=== PATIENT | male | born 1970 | race Caucasian/White ===

== ENCOUNTER 2018-12-04 09:03 | Emergency (ER) | payer OTHER ==
[~2018-12-04] VITALS: Ht 175.3 cm; Wt 86.2 kg
[~2018-12-04 09:03] MED LIST: ADDERALL 15 MG15 MG; FLEXERIL PO; HYDROCODON-ACE1 EAC7 PO; LEXAPRO 10 MG T10 M2 PO; NAPROSYN500 MG PO; NEURONTIN600 MG PO; NORCO 5-325 TA1 EAC1 PO
[2018-12-04] MEDS ORDERED: CYMBALTA20 MG PO (09:19)
[2018-12-04] MEDS ORDERED: GABAPENTIN 100100 MG PO (09:19)
[2018-12-04 09:32] LABS: ABSOLUTE BASOPHILS 0.1 thou/uL (0.0-0.2); ABSOLUTE EOSINOPHILS 0.1 thou/uL (0.0-0.7); ABSOLUTE LYMPHOCYTES 1.6 thou/uL (0.8-5.3); ABSOLUTE MONOCYTES 0.8 thou/uL (0.0-1.2); ABSOLUTE NEUTROPHILS 5.9 thou/uL (1.6-8.1); BASOPHILS 0.9 %; HEMATOCRIT 48.3 % (42.0-52.0); HEMOGLOBIN 16.4 gm/dL (14.0-18.0); LYMPHOCYTES 18.8 %; MCH 30.2 pg (26.0-34.0); MCHC 33.9 g/dL (28.0-37.0); MCV 89.1 fL (80.0-100.0); MONOCYTES 9.2 %; MPV 8.3 fl. (7.2-11.1); NUCLEATED RBCS 0 /100WBC; PLATELET COUNT* 197 thou/uL (150-400); POLYS 70.1 %; RBC 5.42 mil/uL (4.50-6.00); RDW-CV 13.4 % (10.5-14.5); WBC 8.4 thou/uL (4.0-11.0)
[2018-12-04 09:40] LABS: URINE BLOOD NEGATIVE (Negative); URINE CLARITY CLEAR; URINE COLOR YELLOW; URINE GLUCOSE-RANDOM NEGATIVE (Negative); URINE KETONES 1+ (Negative); URINE LEUKOCYTES-REFLEX NEGATIVE (Negative); URINE NITRITE-REFLEX NEGATIVE (Negative); URINE PROTEIN TRACE (Negative); URINE SPECIFIC GRAVITY >= 1.030 (1.005-1.030); URINE UROBILINOGEN 0.2 E.U./dl (0.2-1.0)
[2018-12-04 09:45] LABS: ICTOTEST (BILI CONFIRMATORY) Negative (Negative); URINE BILIRUBIN 1+ (Negative)
[2018-12-04 09:47] LABS: CREATININE 1.1 mg/dL (0.6-1.3); POTASSIUM 3.9 mmol/L (3.5-5.1)
[2018-12-04 09:52] LABS: ALBUMIN 4.4 g/dL (3.4-5.0); SALICYLATE < 2.8 mg/dL (2.8-20.0); TOTAL BILIRUBIN 0.5 mg/dL (<0.1-1.0); TOTAL PROTEIN 7.8 g/dL (6.4-8.2)
[2018-12-04 09:53] LABS: ACETAMINOPHEN < 2 ug/mL (10-30); ALCOHOL < 10 mg/dL (<10)
[2018-12-04 10:02] LABS: AMP/METHAMP Negative (Negative); BARBITURATES Negative (Negative); BENZODIAZEPINES Negative (Negative); COCAINE Negative (Negative); METHADONE Negative (Negative); OPIATES Negative (Negative); PCP Negative (Negative); THC POSITIVE (Negative)
[2018-12-04 17:00] VITALS: BP 106/75
== END 2018-12-04 17:00 ==
LOC: M.ERS 09:03
PROVIDERS: Family Medicine
DX: R45.851 Suicidal ideations (principal); M19.90 Unspecified osteoarthritis, unspecified site; F32.9 Major depressive disorder, single episode, unspecified; Z88.1 Allergy status to other antibiotic agents

== ENCOUNTER 2019-09-28 11:38 | Emergency (ER) | payer OTHER ==
[~2019-09-28] VITALS: Ht 175.3 cm; Wt 74.8 kg
[~2019-09-28 11:38] MED LIST changes: +CYMBALTA20 MG PO; +GABAPENTIN 100100 MG PO
[2019-09-28 12:06] LABS: HEMATOCRIT 46.3 % (42.0-52.0); HEMOGLOBIN 15.9 gm/dL (14.0-18.0); MCH 31.1 pg (26.0-34.0); MCHC 34.2 g/dL (28.0-37.0); MCV 90.9 fL (80.0-100.0); MPV 8.3 fl. (7.2-11.1); RBC 5.1 mil/uL (4.50-6.00); RDW-CV 13.1 % (10.5-14.5); WBC 10.8 thou/uL (4.0-11.0)
[2019-09-28 12:35] LABS: CALCIUM 9.1 mg/dL (8.5-10.1); CREATININE 1.1 mg/dL (0.6-1.3); POTASSIUM 3.8 mmol/L (3.5-5.1)
[2019-09-28 12:37] LABS: ACETAMINOPHEN < 2 ug/mL (10-30); ALCOHOL < 10 mg/dL (<10); SALICYLATE < 2.8 mg/dL (2.8-20.0)
[2019-09-28 12:39] LABS: ALBUMIN 4.4 g/dL (3.4-5.0); TOTAL BILIRUBIN 0.6 mg/dL (<0.1-1.0); TOTAL PROTEIN 7.5 g/dL (6.4-8.2)
[2019-09-28] MEDS ORDERED: ONDANSETRON ODT4 MG PO (12:51)
[2019-09-28] MEDS ORDERED: PROMS25 WY RECTAL (12:51)
[2019-09-28 13:24] VITALS: BP 144/84
--- NOTE | 2019-09-28 15:54 | EKG ---
[place] [address] ELECTROCARDIOGRAM REPORT Name: VINNIE ANDRADE Room: [facility]#: [id number] Admission: 09/28/19 Attend Phys: Discharge: 09/28/19 Date of : 74 Date of Service: 09/28/19 1145 Report #: [id number] THIS REPORT FOR: //name// [facility] ED Test Date: 2019-09-28 Test Time: 11:45:40 Pat Name: VINNIE ANDRADE Department: Room: Gender: Care Transition Coordinator: [facility] : 1970 Requested By: Elgin Vigil Order Number: [id number] MD: Lobo Uribe Measurements Intervals [place] Rate: 55 P: 264 HI: 122 QRS: 77 QRSD: 66 T: 68 QT: 456 QTc: 437 Interpretive Statements Ectopic atrial bradycardia Abnormal T, consider ischemia, anterior leads No previous ECG available for comparison Electronically Signed On 09-28-2019 15:52:40 CDT by Lobo Uribe [email or web address] <ELECTRONICALLY SIGNED> By: Lobo Uribe MD, [facility] 09/28/19 1552 1145 1145 Lobo Uribe MD, [facility] /EPI
== END 2019-09-28 13:25 | disposition home or self-care (01) ==
LOC: M.ERS 11:38
PROVIDERS: Personal Emergency Response Attendant
DX: R11.2 Nausea with vomiting, unspecified (principal); F12.90 Cannabis use, unspecified, uncomplicated; F32.9 Major depressive disorder, single episode, unspecified; M19.90 Unspecified osteoarthritis, unspecified site